=== PATIENT | female | born 1980 | race Caucasian/White ===

== ENCOUNTER 2017-10-22 10:05 | Emergency (ER) | payer SELFPAY | END 2017-10-22 11:50 | disposition home or self-care (01) | LOC: ERS 10:05 | DX: O99.713 Diseases of the skin and subcutaneous tissue complicating pregnancy, third trimester (principal); L03.115 Cellulitis of right lower limb; O10.913 Unspecified pre-existing hypertension complicating pregnancy, third trimester; O99.333 Smoking (tobacco) complicating pregnancy, third trimester; F17.210 Nicotine dependence, cigarettes, uncomplicated; Z3A.32 32 weeks gestation of pregnancy | CPT/HCPCS: 99283 ==

== ENCOUNTER 2017-10-22 13:06 | Day surgery (SDC) | payer OTHER ==
[2017-10-22 13:49] VITALS: BMI 51.9
[2017-10-22 14:27] LABS: #Basophils 0.1 thou/uL (0.0-0.2); #Eosinphils 0.1 thou/uL (0.0-0.7); #Lymphocytes 2.6 thou/uL (1.20-3.40); #Monocytes 0.9 thou/uL (0.11-0.59); #Neutrophils 12.1 thou/uL (1.40-6.50); %Basophils 0.4 % (0.0-1.0); %Eosinophils 0.5 % (0.0-10.0); %Lymphocytes 16.3 % (21.0-51.0); %Monocytes 5.6 % (0.0-10.0); %Neutrophils 77.2 % (42.0-75.0); Hemoglobin 12.4 g/dL (12.0-16.0); Mean Corpuscular HGB CONC 33.4 g/dL (32.0-36.0); Mean Corpuscular Hemoglobin 31.6 pg (27.0-31.0); Mean Corpuscular Volume 94.5 fl (81.0-99.0); Mean Platelet Volume 6.9 fL (7.4-10.4); Platelet Count 231 thou/uL (130-400); RBC Distribution Width 10.9 % (11.5-14.5); Red Blood Cell (RBC) Count 3.92 mill/uL (4.20-5.40); White Blood Cell (WBC) Count 15.6 thou/uL (4.8-10.8)
[2017-10-22 14:34] VITALS: BP 125/77; TEMP 98.7
[2017-10-22 14:45] LABS: ALT (SGPT) 10 U/L (8-55); AST (SGOT) 15 U/L (5-34); Albumin 3.2 g/dL (3.5-5.0); Alkaline Phosphatase 90 U/L (40-150); Anion Gap 15 mmol/L (10-20); BUN (Urea Nitrogen) 12 mg/dL (7.0-18.7); Bilirubin, Total 0.2 mg/dL (0.2-1.2); Calc. Creatinine Clearance 241 mL/min (70-130); Calcium 8.7 mg/dL (7.8-10.44); Carbon Dioxide 18 mmol/L (22-29); Chloride 107 mmol/L (98-107); Estimated GFR-MDRD Greater than 90; Globulin 2.8 g/dL (2.4-3.5); Glucose 91 mg/dL (70-105); Potassium 4.1 mmol/L (3.5-5.1); Sodium 136 mmol/L (136-145)
[2017-10-22 15:10] LABS: Bilirubin Negative (Negative); Blood, Urine Negative (Negative); Clarity CLEAR (Clear); Glucose, Urine (Dipstick) Negative (Negative); Leukocyte Negative (Negative); Nitrite Negative (Negative); Protein, Urine (Dipstick) Negative (Neg-Trace); Specific Gravity, Urine 1.017 (1.002-1.036); Urobilinogen 0.2 mg/dL (0.2-1.0)
[2017-10-22] MEDS ORDERED: Lactated Ringer's 1,000 ML IV SCH (15:45)
--- NOTE | 2017-10-23 01:00 | SS ---
OB TRIAGE NOTE DATE OF EVALUATION: 10/22/2017 ATTENDING PHYSICIAN: Nkechi Alejo M.D. EVALUATING PHYSICIAN: Tristin Jj M.D. CHIEF COMPLAINT: Elevated blood pressure in the office. HISTORY OF PRESENT ILLNESS: Ms. Hughes is a 37-year-old, white, G5, P1, AB2, with an estimated da te of confinement of 12/17/2017, now at 31 and 6/7 weeks, who presents after being evaluated in Dr. Dano mccain's office. She was seen this morning, at which time she had elevated blood pressure and also garcia d an abscess on her foot that Dr. Alejo opened up. Dr. Alejo called me and asked me to evaluate he r for the possibility of PIH. Apparently when she went to the ER, she was seen by the ER doctor cat tena for her wound, but did not come up here for evaluation. Dr. Alejo's office was notified and the p atient returned here to Labor and Delivery for evaluation. At the present time, she feels well, and she denies headache, visual changes, or right upper quadrant pain. PAST OBSTETRICAL HISTORY: Apparently, she has had 1 vaginal delivery and 1 for ruptured ut erus. She has also had 2 intervening spontaneous losses. PAST MEDICAL HISTORY: Unremarkable. CURRENT MEDICATIONS: vitamins. SURGICAL HISTORY: as above. ALLERGIES: Include LATEX, PENICILLIN, EPINEPHRINE. SOCIAL HISTORY: She denies tobacco, alcohol, or drug use. FAMILY HISTORY: Reported as unremarkable. PHYSICAL EXAMINATION: VITAL SIGNS: Blood pressure is well under observation here 120s to 130s over 70s-80s. Her blood pre ssure now is 118/63. GENERAL: She is well appearing and in no acute distress. ABDOMEN: Soft, nontender, and gravid. PELVIC: Pelvic examination is deferred. HEART RATE: heart tones are stable with good urbn-xr-repk variability and spontaneous ac celerations. She was having intermittent contractions, and she was bolused with a liter of IV fluid and now really has only irritability. LABORATORY DATA: CBC shows a white count of 15.6, hemoglobin of 12.4, hematocrit of 37.1, and a plat elet count of 231,000. Catheter UA shows a specific gravity of 1.017 with negative leukocytes, negat elida nitrites, negative protein, negative glucose, and negative bilirubin. Metabolic chemistry shows a creatinine of 0.62, BUN of 12, and a total bilirubin of 0.2. AST and ALT are 15 and 10 respectivel y. ASSESSMENT: 1. A 32-week intrauterine with history of uterine rupture. 2. No evidence of preeclampsia at the present time. 3. Status post I and D of her lower extremity. PLAN: At this time, she will be discharged home with precautions. On her evaluation by the holly gonzalez this morning, she was given a prescription for oral clindamycin and she has had this filled and will take this at home. She was given complete precautions and is told to return here for contracti ons, vaginal bleeding, ruptured membranes, or persistent headache. She understands the above and is discharged in good condition.
== END 2017-10-22 15:50 | disposition home or self-care (01) ==
LOC: L&D/OP 13:06
PROVIDERS: ATTEND Obstetrics & Gynecology
DX: O99.89 Other specified diseases and conditions complicating pregnancy, childbirth and the puerperium (principal); R03.0 Elevated blood-pressure reading, without diagnosis of hypertension; Z3A.31 31 weeks gestation of pregnancy; Z79.899 Other long term (current) drug therapy; Z88.0 Allergy status to penicillin; Z88.8 Allergy status to other drugs, medicaments and biological substances; Z91.040 Latex allergy status; Z98.891 History of uterine scar from previous surgery
CPT/HCPCS: 51701; 59025; 80053; 81003; 85025; 96360; 96361; 99283; A4353

== ENCOUNTER 2017-11-08 00:25 | Day surgery (SDC) | payer OTHER ==
[2017-11-08 00:47] VITALS: BMI 35.9
[2017-11-08] MEDS ORDERED: Lactated Ringer's 1,000 ML IV SCH (01:30)
[2017-11-08 01:35] LABS: #Eosinphils 0.1 thou/uL (0.0-0.7); #Lymphocytes 2.7 thou/uL (1.20-3.40); #Monocytes 0.9 thou/uL (0.11-0.59); %Basophils 0.2 % (0.0-1.0); %Eosinophils 0.5 % (0.0-10.0); %Lymphocytes 19.9 % (21.0-51.0); %Monocytes 6.4 % (0.0-10.0); Hemoglobin 12.3 g/dL (12.0-16.0); Mean Corpuscular HGB CONC 34.5 g/dL (32.0-36.0); Mean Corpuscular Hemoglobin 31.8 pg (27.0-31.0); Mean Corpuscular Volume 92.2 fl (81.0-99.0); Platelet Count 214 thou/uL (130-400); Red Blood Cell (RBC) Count 3.88 mill/uL (4.20-5.40); White Blood Cell (WBC) Count 13.7 thou/uL (4.8-10.8)
[2017-11-08 01:44] LABS: Bilirubin Negative (Negative); Blood, Urine Negative (Negative); Clarity CLEAR (Clear); Glucose, Urine (Dipstick) Negative (Negative); Leukocyte Negative (Negative); Nitrite Negative (Negative); Protein, Urine (Dipstick) Negative (Neg-Trace); Specific Gravity, Urine 1.023 (1.002-1.036)
[2017-11-08 01:56] LABS: ALT (SGPT) 11 U/L (8-55); AST (SGOT) 18 U/L (5-34); Alkaline Phosphatase 89 U/L (40-150); Anion Gap 12 mmol/L (10-20); BUN (Urea Nitrogen) 9 mg/dL (7.0-18.7); Bilirubin, Total 0.2 mg/dL (0.2-1.2); Calc. Creatinine Clearance 185 mL/min (70-130); Calcium 8.7 mg/dL (7.8-10.44); Carbon Dioxide 20 mmol/L (22-29); Chloride 107 mmol/L (98-107); Estimated GFR-MDRD Greater than 90; Globulin 3.4 g/dL (2.4-3.5); Glucose 98 mg/dL (70-105); Potassium 3.7 mmol/L (3.5-5.1); Protein, Total 6.4 g/dL (6.0-8.3); Sodium 135 mmol/L (136-145)
--- NOTE | 2017-11-08 04:04 | SS ---
DATE OF SERVICE: 11/08/2017 REGULAR PHYSICIAN: Nkechi Alejo MD EVALUATING PHYSICIAN: Tristin Jj MD CHIEF COMPLAINT: Pelvic pressure and pain at home. HISTORY OF PRESENT ILLNESS: Ms. Hughes is a 37-year-old , AB2 with an estimated pedro e of confinement of 12/17/2017, who arrives via EMS complaining of pelvic pain and pressure noted lat e this evening. She denies vaginal bleeding or rupture of membranes. She has been followed closely by Dr. Nkechi Alejo for a history of uterine rupture in 2011. She is scheduled for a at 37 weeks. PAST OBSTETRICAL HISTORY: Includes 5-week and 19-week loss as well as a vaginal delivery at term in 2008. She had a uterine rupture in 02/2012, requiring and uterine repair. PAST MEDICAL HISTORY: Unremarkable. PAST SURGICAL HISTORY: and repair as above. CURRENT MEDICATIONS: vitamins. ALLERGIES: No known allergies. SOCIAL HISTORY: Denies tobacco or alcohol use. REVIEW OF SYSTEMS: Denies nausea, vomiting, fever, chills, vaginal bleeding, or ruptured membranes. PHYSICAL EXAMINATION: VITAL SIGNS: Initial blood pressure is 150/90. Repeat blood pressures on her side show 138/72 and 1 39/75. Vital signs are stable. She is afebrile. ABDOMEN: Soft, obese, nontender, and gravid. On pelvic examination, the cervix appears to be closed and is high in the vault. No vaginal bleeding seen. heart rate tracing is reassuring with sp ontaneous accelerations. Initially irritability seen. An IV is placed and she is given a liter of f luid. Irritability is resolved and no significant contractions are seen. LABORATORY DATA: WBC 13.7, hemoglobin and hematocrit 12.3 and 35.7, platelet count 214,000. BUN and creatinine are 9 and 0.56 respectively. AST and ALT are 18 and 11 respectively. A cath urine shows a specific gravity of 1.023 with negative nitrites, negative leukocytes, and negative protein. ASSESSMENT: 1. A 34-week intrauterine with history of previous uterine rupture. 2. No evidence of labor. 3. No evidence of preeclampsia. PLAN: The patient will be discharged to home. She was given complete labor as well as preeclampsia precautions. She is told to return for headache, blurry vision, or abdominal pain and contractions. She voices understanding and is discharged home in good condition.
== END 2017-11-08 02:42 | disposition home or self-care (01) ==
LOC: L&D/OP 00:25
PROVIDERS: ATTEND Obstetrics & Gynecology
DX: O99.89 Other specified diseases and conditions complicating pregnancy, childbirth and the puerperium (principal); R10.2 Pelvic and perineal pain; Z3A.34 34 weeks gestation of pregnancy; Z79.899 Other long term (current) drug therapy; Z98.891 History of uterine scar from previous surgery; Z98.890 Other specified postprocedural states
CPT/HCPCS: 51701; 80053; 81003; 85025; 99284

== ENCOUNTER 2018-04-16 00:46 | Emergency (ER) | payer OTHER ==
[2018-04-16] MEDS ORDERED: Dicyclomine 20 MG TAB PO SCH (06:00)
[2018-04-16] MEDS ORDERED: Ondansetron ODT 8 MG TAB PO SCH (06:00)
[2018-04-16 12:41] LABS: Bilirubin Negative (Negative); Blood, Urine Negative (Negative); Clarity CLEAR (Clear); Glucose, Urine (Dipstick) Negative (Negative); Leukocyte Negative (Negative); Nitrite Negative (Negative); Protein, Urine (Dipstick) Negative (Neg-Trace); RBC/HPF None Seen HPF (0-3); Specific Gravity, Urine 1.025 (1.002-1.036); pH, Urine 6.5 (5.0-9.0)
[2018-04-16 12:42] LABS: Bacteria/HPF None Seen HPF (None Seen); Hyaline Casts/LPF NONE SEEN LPF (0-3 Hyaline); Squamous Epithelial 0-3 HPF (0-3); WBC/HPF 0-3 HPF (0-3)
[2018-04-16 12:43] LABS: Albumin 3.8 g/dL (3.5-5.0); Alkaline Phosphatase 65 U/L (40-150); Anion Gap 14 mmol/L (10-20); Bilirubin, Total 0.4 mg/dL (0.2-1.2); Calc. Creatinine Clearance 0 mL/min (70-130); Calcium 9.5 mg/dL (7.8-10.44); Carbon Dioxide 22 mmol/L (22-29); Chloride 105 mmol/L (98-107); Estimated GFR-MDRD 75; Globulin 3.5 g/dL (2.4-3.5); Glucose 110 mg/dL (70-105); Potassium 3.9 mmol/L (3.5-5.1); Protein, Total 7.3 g/dL (6.0-8.3); Sodium 137 mmol/L (136-145)
[2018-04-16 12:44] LABS: ALT (SGPT) 17 U/L (8-55); AST (SGOT) 16 U/L (5-34); BUN (Urea Nitrogen) 12 mg/dL (7.0-18.7)
[2018-04-16 13:03] LABS: Troponin I Less than 0.010 ng/mL (< 0.028)
--- NOTE | 2018-04-16 14:51 | ULT ---
PELVIC ULTRASOUND WITH ESTRADA SCALE AND DOPPLER COLOR FLOW IMAGING AND SPECTRAL ANALYSIS: Date: 04/16/18 INDICATION: History of nausea and vomiting, left lower abdominal pain, fall with pain. FINDINGS: Doppler evaluation does reveal flow to each ovary. There is a right ovarian cyst approximating 3.0 cm . There is a hypoechoic focus of the endometrial region, too small to definitively characterize. This could relate to a gestational sac and, if so, would correspond to an approximate 5 week/3 day gestat ion. A discrete pole is not visualized and cardiac activity is not elicited. There is no evidence of significant free pelvic fluid. IMPRESSION: 1. Small hypoechoic focus of the endometrial region which may relate to a gestational sac. Recommend correlation with beta HCG values, as well as imaging follow-up to confirm expected progression as th is finding is currently too small to further characterize. 2. Dominant cyst of the right ovary, approximately 3.0 cm. Six week pelvic ultrasound would be benef icial to confirm expected resolution. POS: [facility]
[2018-04-16 15:58] LABS: #Eosinphils 0.1 thou/uL (0.0-0.7); #Lymphocytes 3.2 thou/uL (1.20-3.40); #Monocytes 0.8 thou/uL (0.11-0.59); #Neutrophils 9.9 thou/uL (1.40-6.50); %Basophils 0.1 % (0.0-1.0); %Eosinophils 0.4 % (0.0-10.0); %Lymphocytes 22.7 % (21.0-51.0); %Monocytes 5.5 % (0.0-10.0); %Neutrophils 71.3 % (42.0-75.0); Hemoglobin 13.1 g/dL (12.0-16.0); Mean Corpuscular HGB CONC 31.1 g/dL (32.0-36.0); Mean Corpuscular Hemoglobin 28.2 pg (27.0-31.0); Mean Corpuscular Volume 90.6 fL (78.0-98.0); Mean Platelet Volume 7.8 fL (7.4-10.4); Platelet Count 301 thou/uL (130-400); Red Blood Cell (RBC) Count 4.64 mill/uL (4.20-5.40); White Blood Cell (WBC) Count 13.9 thou/uL (4.8-10.8)
[2018-04-16 16:53] LABS: HCG, Total Quant 1662.96 mIU/mL (See Ranges)
[2018-04-16 16:54] LABS: BHCG - Serum POSITIVE (NEGATIVE); Pregs Control Background? CLEAR/WHITE (CLR/WHITE); Pregs Control Bar Appear? YES (CONTROL BAR)
--- NOTE | 2018-04-24 12:31 | EKG ---
Test Reason : Blood Pressure : / mmHG Vent. Rate : 085 BPM Atrial Rate : 085 BPM P-R Int : 176 ms QRS Dur : 094 ms QT Int : 384 ms P-R-T Axes : 053 028 050 degrees QTc Int : 456 ms Normal sinus rhythm Normal ECG Confirmed by PIPO GONZALEZ D.O. ([id number]), editor magazine [employer]ITT ([id number]) on 04/24/2018 12:30:45 PM Referred By: Confirmed By:PIPO GONZALEZ D.O.
== END 2018-04-16 04:01 | disposition left against medical advice (07) ==
LOC: ERS 00:46
DX: O09.511 Supervision of elderly primigravida, first trimester (principal); O20.0 Threatened abortion; O34.81 Maternal care for other abnormalities of pelvic organs, first trimester; N83.201 Unspecified ovarian cyst, right side; O99.89 Other specified diseases and conditions complicating pregnancy, childbirth and the puerperium; R51 Headache; W19.XXXA Unspecified fall, initial encounter; Z3A.01 Less than 8 weeks gestation of pregnancy
CPT/HCPCS: 76856; 80053; 81001; 84484; 84702; 84703; 85025; 93005

== ENCOUNTER 2018-09-29 00:26 | Day surgery (SDC) | payer OTHER ==
[2018-09-29] MEDS ORDERED: Lactated Ringer's 1,000 ML IV SCH (01:15)
[2018-09-29 01:25] VITALS: BP 137/70; TEMP 97.9; BMI 57.4
[2018-09-29] MEDS ORDERED: Acetaminophen 500 MG TAB PO SCH (01:30)
[2018-09-29] MEDS ORDERED: Butorphanol Tartrate 1 MG/ML VIAL SLOW IVP PRN (01:31)
--- NOTE | 2018-09-29 01:41 | PDOC.LDHP ---
Labor and Delivery H&P Chief complaint: abdominal pain HPI: 38 y/o at 29w6d, patient of Dr. Alejo, presents with lower abdominal pain and low back pain for the last few hours. She reports the pain is "like a constant cramp," with pelvic pressure, and dysuria. Nothing makes it worse or better. She has not taken anything for the pain. Denies VB, LOF, discharge, or decreased FM. ROS neg for HEENT, CV, pulm, GI, , neuro, psych, skin, musculoskeletal, or constitutional symptoms other than mentioned above. OB History Details: 1. 41 week emergent LTCS for FHRA during induction with uterine rupture, placental abruption - demise 2. RLTCS at 37 weeks Current complications: none Past Medical History: Morbid obesity Current medications: pre- vitamins Previous surgical history: low tranverse CS (x2) Allergies/Adverse Reactions: Allergies Allergy/AdvReac Type Severity Reaction Status Date / Time epinephrine Allergy Severe Verified 09/29/18 01:26 Hives Latex, Natural Rubber Allergy Severe Verified 09/29/18 01:26 Hives penicillin G Allergy Severe Verified 09/29/18 01:26 Hives Social history: none - Physical Exam Vital signs reviewed and normal: yes General: NAD (appears uncomfortable) Lungs: nonlabored breathing Abdomen: gravid Extremeties: no edema FHT: category 1 (140s, mod variability, + accels, no decels) [place] contractions every: none - Vaginal Exam cm dilated: 0 Effacement: 0% Station: -3 - Assessment 38 y/o at 29w6d with abdominal pain, resolved with IV fluids, tylenol, and one dose of Stadol. status reassuring with reactive NST. - Plan -: Patient requesting to go home, feeling better now. D/c home with precautions. Advised to keep all appointments.
[2018-09-29 01:45] LABS: Bilirubin Negative (Negative); Blood, Urine Negative (Negative); Clarity CLOUDY (Clear); Glucose, Urine (Dipstick) 100 mg/dL (Negative); Leukocyte Negative (Negative); Nitrite Negative (Negative); Protein, Urine (Dipstick) Negative (Neg-Trace); Specific Gravity, Urine 1.026 (1.002-1.036)
[2018-09-29 01:46] LABS: Bacteria/HPF None Seen HPF (None Seen); Hyaline Casts/LPF 0-3 HYALINE CAST LPF (0-3 Hyaline); RBC/HPF 0-3 HPF (0-3); Squamous Epithelial 0-3 HPF (0-3); WBC/HPF 0-3 HPF (0-3)
[2018-09-29 02:06] LABS: FFN Internal QC Analyzer PASS (PASS); FFN Internal QC Cassette PASS (PASS); Fetal Fibronectin Negative (Negative)
== END 2018-09-29 07:30 | disposition home or self-care (01) ==
LOC: L&D/OP 00:26
PROVIDERS: ATTEND Obstetrics & Gynecology
DX: O99.89 Other specified diseases and conditions complicating pregnancy, childbirth and the puerperium (principal); R10.30 Lower abdominal pain, unspecified; O34.211 Maternal care for low transverse scar from previous cesarean delivery; Z3A.29 29 weeks gestation of pregnancy; Z91.040 Latex allergy status; Z88.0 Allergy status to penicillin; Z88.8 Allergy status to other drugs, medicaments and biological substances; Z79.899 Other long term (current) drug therapy
CPT/HCPCS: 51701; 81001; 82731; 96360; 96375; 99283; J0595

== ENCOUNTER 2018-10-28 14:06 | Emergency (ER) | payer OTHER | END 2018-10-28 15:43 | disposition home or self-care (01) | LOC: ERS 14:06 | DX: O99.89 Other specified diseases and conditions complicating pregnancy, childbirth and the puerperium (principal); R10.30 Lower abdominal pain, unspecified; Z3A.34 34 weeks gestation of pregnancy ==

== ENCOUNTER 2018-10-28 16:11 | Inpatient (IN) | payer OTHER ==
[2018-10-28 16:21] VITALS: BMI 57.8
[2018-10-28] MEDS ORDERED: Ondansetron PF 4 MG/2 ML Vial IVP PRN (19:06)
[2018-10-28 20:43] LABS: Hemoglobin 12.3 g/dL (12.0-16.0); Mean Corpuscular HGB CONC 34.2 g/dL (32.0-36.0); Mean Corpuscular Hemoglobin 31.5 pg (27.0-31.0); Mean Corpuscular Volume 92.3 fL (78.0-98.0); Mean Platelet Volume 7.2 fL (7.4-10.4); Platelet Count 212 thou/uL (130-400); RBC Distribution Width 11.7 % (11.5-14.5); Red Blood Cell (RBC) Count 3.91 mill/uL (4.20-5.40); White Blood Cell (WBC) Count 13.8 thou/uL (4.8-10.8)
[2018-10-28] MEDS ORDERED: Butorphanol Tartrate 1 MG/ML VIAL SLOW IVP PRN (22:26)
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
[2018-10-29] MEDS ORDERED: Acetaminophen/Codeine 30-300mg Tablet PO PRN (00:54)
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
[2018-10-29] MEDS: Acetaminophen 500 MG TAB PO PRN ×2 (07:37→16:11)
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
[2018-10-29] MEDS ORDERED: Labetalol HCl 100 MG/20 ML VIAL ONE (11:47)
--- NOTE | 2018-10-29 11:50 | PDOC.EVN ---
Event Note - Event Note Event Note: OBGYN Quality Assurance Inspector HTN note Time: 1150 L&D EGA 34 weeks Called for maternal BP 166/78 and 173/79. I just ordered labetolol 20mg IV now Ordered steroids as well now Per Dr Alejo, HX CHTN....but no meds. not on ASPIRIN..as she declined Baseline pressures 140s/80s in office. Just discussed with Dr Alejo Follow BPs Ordered CMP
[2018-10-29] MEDS ORDERED: Betamet Acet/Betamet Na Ph 30 MG/5 ML VIAL IM SCH (12:00)
--- NOTE | 2018-10-29 12:03 | PDOC.EVN ---
Event Note - Event Note Event Note: 1200 L&D Bedside APU1 I am here at bedside. Patient had first refused labetolol IV. She was concerned it was "too much medicine for the baby". I reviewed with her, with our RN in room, ACOG protocols for urgent HTN and reasons to lower: decreased CVA risk, decresaed abruption risk. She now agrees to meds. Past HX reviewed including uterine rupture. Past HX tobacco I also discussed: Steroids Possible early delivery if BPs remain severe SCDs
[2018-10-29 12:11] VITALS: TEMP 97.5
[2018-10-29] MEDS ORDERED: Labetalol HCl 100 MG/20 ML VIAL SLOW IVP SCH ×2 (12:15→12:45)
--- NOTE | 2018-10-29 12:32 | PDOC.EVN ---
Event Note - Event Note Event Note: Time: 1231 Repeat BP 177/80s 10 min after 20mg labetolol Per ACOG protocol, give 40mg SIVP now
[2018-10-29 13:14] LABS: Amphetamine Not Detected (NotDetected); Barbiturates Screen Not Detected (NotDetected); Benzodiazepine Screen Not Detected (NotDetected); Cocaine Metabolite Screen Not Detected (NotDetected); Medtox Control Line Valid? VALID (VALID); Medtox Reader # READER 4; Methadone Not Detected (NotDetected); Methamphetamine Not Detected (NotDetected); Opiate Screen Detected (NotDetected); Oxycodone Screen Not Detected (NotDetected); Phencyclidine (PCP) Not Detected (NotDetected); THC/Cannabinoid Screen Not Detected (NotDetected); Tricyclic Screen Not Detected (NotDetected)
[2018-10-29] MEDS: Betamet Acet/Betamet Na Ph 30 MG/5 ML VIAL IM SCH (13:18)
[2018-10-29 13:45] LABS: ALT (SGPT) 14 U/L (8-55); AST (SGOT) 13 U/L (5-34); Alkaline Phosphatase 64 U/L (40-150); Anion Gap 12 mmol/L (10-20); BUN (Urea Nitrogen) 6 mg/dL (7.0-18.7); Bilirubin, Total 0.2 mg/dL (0.2-1.2); Calc. Creatinine Clearance 266 mL/min (70-130); Calcium 8.7 mg/dL (7.8-10.44); Carbon Dioxide 22 mmol/L (22-29); Chloride 108 mmol/L (98-107); Estimated GFR-MDRD Greater than 90; Globulin 3.2 g/dL (2.4-3.5); Glucose 136 mg/dL (70-105); Potassium 3.6 mmol/L (3.5-5.1); Protein, Total 6.2 g/dL (6.0-8.3); Sodium 138 mmol/L (136-145)
--- NOTE | 2018-10-29 18:49 | PDOC.EVN ---
Event Note - Event Note Event Note: BP checks: BPs since 1300 have been well controlled and less than 140/90s
[2018-10-29 19:12] VITALS: BP 136/63
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
[2018-10-30] MEDS: Betamet Acet/Betamet Na Ph 30 MG/5 ML VIAL IM SCH (13:40)
== END 2018-10-30 15:00 | disposition home or self-care (01) | DRG 833 ==
LOC: L&D/OP 16:11 → L&D 20:37 → OBSVTOIN 10-29 12:07
PROVIDERS: ADMIT Obstetrics & Gynecology; ATTEND Obstetrics & Gynecology
DX: O9A.213 Injury, poisoning and certain other consequences of external causes complicating pregnancy, third trimester (principal); O99.213 Obesity complicating pregnancy, third trimester; E66.01 Morbid (severe) obesity due to excess calories; V89.2XXA Person injured in unspecified motor-vehicle accident, traffic, initial encounter; O10.013 Pre-existing essential hypertension complicating pregnancy, third trimester; Z3A.34 34 weeks gestation of pregnancy; Z88.0 Allergy status to penicillin; Z91.040 Latex allergy status; Z88.8 Allergy status to other drugs, medicaments and biological substances
CPT/HCPCS: 36415; 59025; 76815; 80053; 80306; 85027; 85384; 85460; 99283; 99285; J0595; J0702

== ENCOUNTER 2018-11-09 22:51 | Inpatient (IN) | payer OTHER ==
[2018-11-09 23:14] VITALS: BMI 57.8
[2018-11-09] MEDS ORDERED: Morphine 10 MG/ML VIAL IM SCH (23:45)
[2018-11-09] MEDS ORDERED: Morphine 4 MG/ML VIAL SLOW IVP SCH (23:45)
[2018-11-09] MEDS ORDERED: Lactated Ringer's 1,000 ML IV SCH (23:45)
[2018-11-09] MEDS ORDERED: Ondansetron PF 4 MG/2 ML Vial IVP SCH (23:45)
[2018-11-09] MEDS ORDERED: Butorphanol Tartrate 1 MG/ML VIAL SLOW IVP PRN (23:55)
[2018-11-09] MEDS ORDERED: Promethazine HCl 25 MG/ML VIAL IM PRN (23:55)
[2018-11-10 00:56] LABS: Hemoglobin 12.8 g/dL (12.0-16.0); Mean Corpuscular Hemoglobin 31.5 pg (27.0-31.0); Mean Corpuscular Volume 92.7 fL (78.0-98.0); Mean Platelet Volume 7.9 fL (7.4-10.4); Platelet Count 207 thou/uL (130-400); RBC Distribution Width 11.6 % (11.5-14.5); Red Blood Cell (RBC) Count 4.05 mill/uL (4.20-5.40); White Blood Cell (WBC) Count 16.2 thou/uL (4.8-10.8)
[2018-11-10 01:16] LABS: ALT (SGPT) 14 U/L (8-55); AST (SGOT) 22 U/L (5-34); Albumin 3.1 g/dL (3.5-5.0); Alkaline Phosphatase 72 U/L (40-150); Anion Gap 14 mmol/L (10-20); BUN (Urea Nitrogen) 8 mg/dL (7.0-18.7); Bilirubin, Total 0.3 mg/dL (0.2-1.2); Calc. Creatinine Clearance 284 mL/min (70-130); Carbon Dioxide 19 mmol/L (22-29); Chloride 106 mmol/L (98-107); Estimated GFR-MDRD Greater than 90; Globulin 3.6 g/dL (2.4-3.5); Glucose 82 mg/dL (70-105); Potassium 4.1 mmol/L (3.5-5.1); Protein, Total 6.7 g/dL (6.0-8.3); Sodium 135 mmol/L (136-145)
[2018-11-10] MEDS: Lactated Ringer's 1,000 ML IV SCH (01:21)
[2018-11-10 02:10] LABS: Bilirubin Negative (Negative); Blood, Urine Negative (Negative); Clarity CLEAR (Clear); Glucose, Urine (Dipstick) Negative (Negative); Leukocyte Negative (Negative); Nitrite Negative (Negative); Protein, Urine (Dipstick) Negative (Neg-Trace); Urobilinogen 0.2 mg/dL (0.2-1.0)
[2018-11-10 02:15] LABS: Urine Culture Reflex No No
[2018-11-10] MEDS ORDERED: Butorphanol Tartrate 1 MG/ML VIAL SLOW IVP SCH (04:00)
[2018-11-10] MEDS ORDERED: Butorphanol Tartrate 1 MG/ML VIAL ONE ×2 (04:00)
[2018-11-10] MEDS ORDERED: Ondansetron PF 4 MG/2 ML Vial IVP PRN ×2 (04:28→09:30)
[2018-11-10] MEDS ORDERED: Lactated Ringer's 1,000 ML IV SCH (04:30)
[2018-11-10 05:08] LABS: Hemoglobin 12.2 g/dL (12.0-16.0); Mean Corpuscular HGB CONC 31.5 g/dL (32.0-36.0); Mean Corpuscular Hemoglobin 29.4 pg (27.0-31.0); Mean Corpuscular Volume 93.3 fL (78.0-98.0); Mean Platelet Volume 7.5 fL (7.4-10.4); Platelet Count 210 thou/uL (130-400); RBC Distribution Width 11.7 % (11.5-14.5); Red Blood Cell (RBC) Count 4.14 mill/uL (4.20-5.40); White Blood Cell (WBC) Count 13.6 thou/uL (4.8-10.8)
[2018-11-10 05:49] LABS: Syphilis Antibody Nonreactive (Nonreactive); Syphilis Antibody Index 0.03 S/CO (<1.00 Non-Reactive)
[2018-11-10 06:52] LABS: HBSAg Index 0.43 S/CO (0-0.99); Hep B Surf Ag NonReactive S/CO (NonReactive)
--- NOTE | 2018-11-10 08:03 | ULT ---
LIMITED OB ULTRASOUND: History: Patient had a previous . Physician requested the uterine wall to be evaluated near the C-Sec tion scar. FINDINGS: Real-time imaging of the pelvis shows a viable intrauterine in cephalic presentation. heart rate is 131 beats/minute. The placenta is not imaged on this examination. Imaging over the are a of scar shows no obvious uterine wall abnormality although exam is very limited. Referring physicia n viewed this and was satisfied with the results and technologist terminated this study. IMPRESSION: Limited OB ultrasound. No abnormalities demonstrated as described above. POS: [facility]
[2018-11-10] MEDS ORDERED: Promethazine HCl 25 MG/ML VIAL IM PRN (09:30)
[2018-11-10] MEDS ORDERED: Acetaminophen 500 MG TAB PO PRN (09:30)
[2018-11-10] MEDS ORDERED: hydrALAZINE 20 MG/ML VIAL SLOW IVP PRN (09:33)
[2018-11-10 11:37] LABS: ALT (SGPT) 13 U/L (8-55); AST (SGOT) 15 U/L (5-34); Alkaline Phosphatase 73 U/L (40-150); Anion Gap 13 mmol/L (10-20); BUN (Urea Nitrogen) 6 mg/dL (7.0-18.7); Bilirubin, Total 0.5 mg/dL (0.2-1.2); Calc. Creatinine Clearance 279 mL/min (70-130); Calcium 8.8 mg/dL (7.8-10.44); Carbon Dioxide 21 mmol/L (22-29); Chloride 106 mmol/L (98-107); Estimated GFR-MDRD Greater than 90; Glucose 86 mg/dL (70-105); Potassium 3.9 mmol/L (3.5-5.1); Sodium 136 mmol/L (136-145)
--- NOTE | 2018-11-10 12:27 | HP ---
PRIMARY INFECTION CONTROL PRACTITIONER: Nkechi Alejo MD CHIEF COMPLAINT: Pelvic and abdominal pain. HISTORY OF PRESENT ILLNESS: The patient is a 38-year-old, G7, P2 female with an intrauterine at 35 weeks and 6 days, who is presenting today with onset of lower pelvic and abdominal pain. The patient reports that it is constant and severe. She reports a lot of pressure and is worried that she is having a uterine rupture. The patient does have a history of a spontaneous uterine rupture with labor in her second . Per her report, provoked with Pitocin use resulting in a demise. The patient denies any strenuous activity today, any other ordinary activity. She denies any falls, headache, chest pain, shortness of breath, nausea, vomiting, diarrhea, constipation, hip problems, knee problems, muscle weakness, bleeding or discharge, or urinary urgency. PAST MEDICAL HISTORY: Morbid obesity and history of uterine rupture at term after Pitocin use for induction of labor; chronic hypertension, off medication. PAST SURGICAL HISTORY: Two prior C-sections. SOCIAL HISTORY: Denies drug, alcohol, or tobacco use. ALLERGIES: EPINEPHRINE, LATEX, AND PENICILLIN. MEDICATIONS: None. OB LABS: Blood type is AB positive. Antibody screen negative. Hepatitis B surface antigen is nonreactive. RPR is nonreactive. REVIEW OF SYSTEMS: Per HPI. PHYSICAL EXAMINATION: VITAL SIGNS: Upon arrival, initial blood pressure is 173/77, heart rate of 89. Subsequent pressures have been 130s to 140s over 60s to 80s, heart rate was in the 80s, respiratory rate 18. She did overnight have another severe range of pressure of 186/87 in conjunction with crying and discussion about her fears of uterine rupture. GENERAL: The patient appears to be in distress and extremely anxious and has been difficult to calm and relax on initial exam. She otherwise does not appear toxic. LUNGS: Clear. HEART: Regular rate and rhythm. ABDOMEN: Soft. She does have tenderness in the lower abdomen, lower pelvis area. EXTREMITIES: Nontender. Her DTRs are normal. GENITOURINARY: Vulva is without masses, lesions, or erythema. Cervix is closed and very posterior with a lot of tenderness in the vaginal wall between her bladder and the vaginal wall and the baby's head. heart tracing shows a fetus with a baseline in the 130s with moderate long-term variability, positive 15 x 15 accelerations, and no decelerations. Tocometer on arrival did show contractions about every 4 to 5 minutes, which with IV fluids have spaced out this morning to every 20 to 30 minutes. Repeat exam this morning, the patient appears much more calm. LABORATORY DATA: Urine is negative for protein, negative for nitrites, leukocyte esterase. Sodium is 135, potassium 4.1, creatinine 0.56, AST 22, ALT of 14, calcium of 9.0. Fibrinogen is 526. Hemoglobin 12.8, hematocrit 37.6, platelets of 207,000. Repeat CBC 4 hours later shows hemoglobin of 12.2, platelets of 210,000. Ultrasound was performed with evaluation of the lower uterine segment and visual confirmation that everything is intact. No evidence of disruption of the anterior wall of the uterus at the level of the scar. ASSESSMENT AND PLAN: The patient is a 38-year-old female with an intrauterine at 35 weeks and 6 days, presenting with lower pelvic pain. There is no objective evidence that she has any rupture occurring at this time. The patient has extreme anxiety that this is going to happen again and has been very difficult to console with pain medication with repeat labs with ultrasound. I have discussed the case this morning with her primary OB, Dr. Alejo, who will be by at 8 to talk to her. Job ID: [id number]
[2018-11-11] MEDS ORDERED: Preparation H Ointment 28 GM TUBE TOP PRN (04:36)
[2018-11-11] MEDS ORDERED: Clindamycin/D5W 900 mg/50 ml Premix Bag ONE ×2 (07:22→07:34)
[2018-11-11] MEDS ORDERED: MORPHINE 5 MG/10 ML PF VIAL ONE (07:25)
[2018-11-11] MEDS ORDERED: Oxytocin 10 UNITS/ML VIAL ONE ×2 (07:26→08:15)
[2018-11-11] MEDS ORDERED: ePHEDrine/0.9% NaCl/PF SYRINGE 50 mg/10 ml ONE (07:53)
[2018-11-11] MEDS ORDERED: PHENYLEPHRINE-NS 100 MCG/ML 10 ML SYRINGE ONE ×2 (08:18→13:51)
[2018-11-11] MEDS ORDERED: Lanolin Ointment 7 GM TUBE TOP PRN (08:28)
[2018-11-11] MEDS ORDERED: Acetaminophen 325 MG TAB PO PRN (08:28)
[2018-11-11] MEDS ORDERED: Bisacodyl 10 MG SUPP PR PRN (08:28)
[2018-11-11] MEDS ORDERED: HYDROcodone/Acetaminophen 5/325 mg Tablet PO PRN ×3 (08:28→20:45)
[2018-11-11] MEDS ORDERED: diphenhydrAMINE 25 MG CAP PO PRN (08:28)
[2018-11-11] MEDS ORDERED: Adacel (T-DAP) 0.5 ML SYRINGE IM ONE (08:28)
[2018-11-11] MEDS ORDERED: Misoprostol 200 MCG TAB PR PRN (08:28)
[2018-11-11] MEDS ORDERED: NS / Oxytocin 40 units/1000ml 1,000 ML IV SCH (08:30)
[2018-11-11] MEDS ORDERED: Meperidine HCl/PF 25 MG/ML VIAL SLOW IVP PRN (08:41)
[2018-11-11] MEDS ORDERED: L&D-Morphine 4 MG/ML VIAL SLOW IVP PRN (08:41)
[2018-11-11] MEDS ORDERED: diphenhydrAMINE 50 MG/ML VIAL IVP PRN (08:41)
[2018-11-11] MEDS ORDERED: Naloxone HCl 0.4 mg/ml Vial IV PRN (08:41)
[2018-11-11] MEDS ORDERED: Ondansetron PF 4 MG/2 ML Vial IVP PRN (08:41)
[2018-11-11] MEDS ORDERED: Ondansetron HCl/PF 4 MG/2 ML Vial IVP PRN (08:41)
[2018-11-11] MEDS ORDERED: HYDROmorphone 2 MG/ML VIAL SLOW IVP PRN (08:41)
[2018-11-11] MEDS ORDERED: Naloxone HCl 0.4 mg/ml Vial IVP PRN ×2 (08:41)
[2018-11-11] MEDS ORDERED: Promethazine HCl 25 MG/ML VIAL IM PRN (08:41)
[2018-11-11] MEDS ORDERED: Promethazine HCl 25 MG SUPP PR PRN (08:41)
[2018-11-11] MEDS ORDERED: Eucerin (Mineral Oil/Petrolatum,White) 30 gm Jar TOP PRN (08:41)
[2018-11-11] MEDS ORDERED: Ketorolac Tromethamine 30 MG/ML VIAL IVP SCH (08:45)
[2018-11-11] MEDS ORDERED: Communication Order-Pharmacy FS SCH (08:45)
[2018-11-11] MEDS ORDERED: Ketorolac Tromethamine 30 MG/ML VIAL ONE (08:55)
[2018-11-11] MEDS: Ketorolac Tromethamine 30 MG/ML VIAL IVP PRN ×2 (09:00→18:44)
[2018-11-11] MEDS: Lactated Ringer's 1,000 ML IV SCH ×4 (10:07→14:27)
--- NOTE | 2018-11-11 11:36 | OP ---
DATE OF PROCEDURE: 11/11/2018 PREOPERATIVE DIAGNOSES: 1. A 38-year-old white female, G6, P3, A2 with previous uterine rupture in labor with . 2. Prior section x2. 3. Chronic hypertension. 4. Completed 36 weeks' gestation with persistent uterine irritability. POSTOPERATIVE DIAGNOSES: 1. A 38-year-old white female, G6, P3, A2 with previous uterine rupture in labor with . 2. Prior section x2. 3. Chronic hypertension. 4. Completed 36 weeks' gestation with persistent uterine irritability. PROCEDURE PERFORMED: Repeat low-transverse section without extensions. AUTOMATION QTP TESTER SURGEON: Genaro Cotto MD ANESTHESIA: Spinal block by Dr. Bernardo Mitchell. QUANTITATIVE BLOOD LOSS: 105 mL. ANTIBIOTICS: Clindamycin 900 mg on-call to OR due to severe penicillin allergy that was reported. FINDINGS: 1. Female infant, Apgars 8 and 8. weight 6 pounds and 2 ounces. Clear amniotic fluid noted with vertex presentation. 2. Clear urine present in Zurita catheter postprocedure. 3. The lower uterine segment was noted to be very thin, but no evidence of any muscle defect visualized. DISPOSITION: Recovery room, stable. DESCRIPTION OF PROCEDURE: The patient previously received informed consent in regard to surgery. She was taken back to the operating room, where she received a spinal block by Dr. Mitchell. She was placed in supine position, prepped and draped in usual sterile fashion with SCDs and Zurita catheter. At this time, a Pfannenstiel incision was made through the previous scar site. It was taken down to the fascia. The fascia was nicked in midline. The fascial incision was extended bilaterally using curved Jay scissors. The rectus fascia was then dissected sharply and bluntly off the rectus muscle bellies. Some adhesions were noted and these were taken down sharply and with Bovie cautery. Balbir O retractor was then placed. A 2-cm hysterotomy incision was made above the vesicouterine peritoneal reflection and noted a thin lower uterine segment. This was extended via finger fractionation. The amniotic bag was ruptured with clear fluid noted and the baby was delivered in the vertex presentation. The mouth and nares of the were bulb suctioned on the abdomen. The cord was doubly clamped and cut and the baby was handed to the tarper, Dr. Burdick, who was in attendance. The usual cord blood was obtained. Placenta was manually extracted. Uterus was externalized, then curetted of any remaining placental fragments with a dry laparotomy sponge. Hysterotomy incision was then closed with #1 Monocryl in running locking fashion with good hemostasis being confirmed. The uterus had been placed back in the abdomen. The pelvis was irrigated and suctioned. Again, hemostasis was confirmed. The Balbir O retractor was removed. The rectus muscle bellies were inspected and noted to be hemostatic prior to fascial closure. The fascia was closed with 0 PDS suture x2 in a running continuous fashion. Subcutaneous tissue was irrigated, noted to be hemostatic and was approximated with 2-0 plain gut in a running fashion. The skin was stapled. The surgery was terminated. There were no anesthetic or surgical complications. Job ID: [id number]
[2018-11-11] MEDS: Ferrous Sulfate 325 MG TAB PO SCH ×2 (13:44→22:56)
[2018-11-11] MEDS: Docusate Calcium (SURFAK) 240 MG CAP PO SCH ×2 (13:44→21:44)
[2018-11-11] MEDS: Prenatal Vitamin 1 TAB PO SCH (13:44)
[2018-11-11] MEDS ORDERED: ePHEDrine 50 MG/ML VIAL ONE (13:51)
[2018-11-11] MEDS ORDERED: Ibuprofen 800 MG TAB PO SCH (14:00)
[2018-11-11] MEDS: Simethicone Chewable 80 MG TAB PO PRN (21:45)
[2018-11-12] MEDS: Lactated Ringer's 1,000 ML IV SCH ×3 (01:13→18:43)
[2018-11-12] MEDS: HYDROcodone/Acetaminophen 5/325 mg Tablet PO PRN ×3 (02:18→13:34)
[2018-11-12] MEDS: Ibuprofen 800 MG TAB PO SCH ×3 (05:14→21:27)
[2018-11-12 07:12] LABS: Hemoglobin 12.2 g/dL (12.0-16.0); Mean Corpuscular HGB CONC 33.4 g/dL (32.0-36.0); Mean Corpuscular Hemoglobin 31.1 pg (27.0-31.0); Mean Corpuscular Volume 93.1 fL (78.0-98.0); Mean Platelet Volume 7.5 fL (7.4-10.4); Platelet Count 197 thou/uL (130-400); RBC Distribution Width 11.9 % (11.5-14.5); Red Blood Cell (RBC) Count 3.92 mill/uL (4.20-5.40); White Blood Cell (WBC) Count 12.4 thou/uL (4.8-10.8)
--- NOTE | 2018-11-12 08:02 | PDOC.PP ---
Post Progress Note Post Day #: 1 Subjective: Good pain control. No nausea. Tolerating diet. Baby doing well. PO intake tolerated: yes Flatus: yes Ambulation: yes Vital Signs (12 hours) Temp Pulse Resp BP Pulse Ox 11/12/18 05:10 98.3 F 100 18 138/71 11/12/18 02:00 98.8 F 101 H 20 141/73 H 11/11/18 20:00 98.4 F 102 H 20 136/72 95 Weight Weight 296 lb - Physical Examination Abdominal: + bowel sounds, lochia, no distention, appropriately TTP Extremities: negative homans (B) Result Diagrams: 11/12/18 06:47 11/10/18 10:49 Additional Labs: Post Labs Blood Type A POSITIVE 11/10/18 04:49 Hep Bs Antigen NonReactive S/CO (NonReactive) 11/10/18 04:49 - Assessment/Plan Post op day 1 from repeat c/s #3..H/o uterine rupture while in labor with .H/o chronic mild hypertension. Doing well. Routine care. Possible discharge 11/13 if baby continues to progress well. [place] out in office post op day 7.
--- NOTE | 2018-11-12 08:05 | PDOC.OPDEL ---
OB Operative/Delivery Note Delivery Dr/Surgeon: Sapna Assist: Yadiel Pre-Delivery Diagnosis: scheduled section Procedure/Post Delivery Dx: repeat low transverse CS Weeks gestation: 36 Anesthesia: spinal - Findings A Sex: female Weight: 6 lb 2 oz - 1 min: 8 - 5 min: 8 - Additional Findings/Plan Placenta delivered: manual removal Estimated blood loss: 105ml QBL
[2018-11-12] MEDS: Docusate Calcium (SURFAK) 240 MG CAP PO SCH ×2 (08:20→21:27)
[2018-11-12] MEDS: Prenatal Vitamin 1 TAB PO SCH (08:20)
[2018-11-12] MEDS: Ferrous Sulfate 325 MG TAB PO SCH ×2 (08:23→23:14)
[2018-11-12] MEDS ORDERED: Ibuprofen 800 MG TAB PO SCH (14:00)
[2018-11-12] MEDS: Simethicone Chewable 80 MG TAB PO PRN (21:28)
[2018-11-13] MEDS: Lactated Ringer's 1,000 ML IV SCH ×2 (01:09→05:52)
[2018-11-13] MEDS: Ibuprofen 800 MG TAB PO SCH (05:08)
[2018-11-13] MEDS: HYDROcodone/Acetaminophen 5/325 mg Tablet PO PRN ×2 (08:09→12:08)
[2018-11-13] MEDS: Prenatal Vitamin 1 TAB PO SCH (08:10)
[2018-11-13] MEDS: Docusate Calcium (SURFAK) 240 MG CAP PO SCH (08:10)
[2018-11-13] MEDS: Ferrous Sulfate 325 MG TAB PO SCH (08:11)
[2018-11-13 09:23] VITALS: BP 142/87; TEMP 99
--- NOTE | 2018-11-14 04:08 | DIS ---
DATE OF ADMISSION: 11/10/2018 DATE OF DISCHARGE: 11/13/2018 ADMITTING DIAGNOSES: 1. Intrauterine at 36 weeks. 2. Pelvic pain. 3. History of spontaneous uterine rupture at term. 4. Anxiety. DISCHARGE DIAGNOSES: 1. Intrauterine at 36 weeks. 2. Pelvic pain. 3. History of spontaneous uterine rupture at term. 4. Anxiety. 5. Status post repeat section. CONSULTATIONS: None. HOSPITAL COURSE: The patient is a 38-year-old female with an intrauterine at 35 weeks and 6 days on day of admission, who presented with onset of lower pelvic abdominal pain that patient reported severe with high anxiety and concern that she is experiencing a uterine rupture again. The patient reported at that time her history of spontaneous uterine rupture with induction of labor with her 2nd resulting in a demise. Her evaluation at that time did not prove to provide any evidence that she was having a uterine rupture. However, given her past history, high anxiety level and significant pain, her primary OB did proceed with a repeat at 36 weeks. For complete details, please refer to her operative note. The patient's course has been uncomplicated. Today is postop day #2. The patient reports that she is tolerating p.o., having good pain control. In fact, reports her pain is much better since before the and decreased lochia. The patient is ambulating and has good pain control. PHYSICAL EXAMINATION: VITAL SIGNS: This morning blood pressure is 142/87, temperature 99, pulse of 89, respiratory rate of 20, saturating 96% on room air. GENERAL: She appears to be in no acute distress. Fundus is unable to be examined due to habitus as the patient is morbidly obese. Her incision is clean and intact with justina. The patient is being discharged to home. She has instructions to follow up with her primary OB, Dr. Alejo, in the next 3-4 days for staple removal. She has also been given instructions to keep the area clean and dry with the aid of pat drying and blow drying. She has been given instructions to refrain from driving for the next 2 weeks and to limit her lifting to 15 pounds for the next 4 to 6 weeks. The patient will be discharged to home with ibuprofen and tramadol for pain control. Again, she is to follow up in the next 3-4 days for staple removal. Job ID: [id number]
== END 2018-11-13 12:40 | disposition home or self-care (01) | DRG 787 ==
LOC: L&D/OP 22:51 → L&D 11-10 11:53 → 3SW 11-11 12:53
PROVIDERS: ADMIT Obstetrics & Gynecology; ATTEND Obstetrics & Gynecology
PROC: 10D00Z1 Extraction of Products of Conception, Low, Open Approach (ICD-10-PCS; principal; 2018-11-11)
DX: O60.14X0 Preterm labor third trimester with preterm delivery third trimester, not applicable or unspecified (principal); O10.02 Pre-existing essential hypertension complicating childbirth; Z3A.36 36 weeks gestation of pregnancy; Z37.0 Single live birth; O34.219 Maternal care for unspecified type scar from previous cesarean delivery; O99.214 Obesity complicating childbirth; E66.01 Morbid (severe) obesity due to excess calories; O99.344 Other mental disorders complicating childbirth; F41.9 Anxiety disorder, unspecified; Z87.59 Personal history of other complications of pregnancy, childbirth and the puerperium; Z88.0 Allergy status to penicillin; Z88.8 Allergy status to other drugs, medicaments and biological substances; Z91.040 Latex allergy status
CPT/HCPCS: 36415; 51702; 76815; 80053; 81003; 85027; 85384; 86780; 86850; 86900; 86901; 87340; 99285; J0595; J1885; J2270; J2590; J3490

== ENCOUNTER 2019-02-04 07:08 | Emergency (ER) | payer OTHER, SELFPAY ==
[2019-02-04] MEDS ORDERED: Fentanyl 100 MCG/2 ML VIAL ONE (07:37)
[2019-02-04 07:58] LABS: #Basophils 0.1 thou/uL (0.0-0.2); #Eosinphils 0.1 thou/uL (0.0-0.7); #Lymphocytes 3.3 thou/uL (1.20-3.40); #Monocytes 0.7 thou/uL (0.11-0.59); #Neutrophils 6.1 thou/uL (1.40-6.50); %Basophils 0.9 % (0.0-1.0); %Eosinophils 1.2 % (0.0-10.0); %Lymphocytes 31.7 % (21.0-51.0); %Monocytes 6.7 % (0.0-10.0); %Neutrophils 59.6 % (42.0-75.0); Hemoglobin 14.6 g/dL (12.0-16.0); Mean Corpuscular HGB CONC 33.1 g/dL (32.0-36.0); Mean Corpuscular Hemoglobin 30.1 pg (27.0-31.0); Mean Platelet Volume 7.9 fL (7.4-10.4); Platelet Count 247 thou/uL (130-400); RBC Distribution Width 12.5 % (11.5-14.5); Red Blood Cell (RBC) Count 4.85 mill/uL (4.20-5.40); White Blood Cell (WBC) Count 10.3 thou/uL (4.8-10.8)
[2019-02-04 08:02] LABS: BHCG - Serum Negative (NEGATIVE); Pregs Control Background? CLEAR/WHITE (CLR/WHITE); Pregs Control Bar Appear? YES (CONTROL BAR)
[2019-02-04 08:16] LABS: ALT (SGPT) 22 U/L (8-55); AST (SGOT) 18 U/L (5-34); Albumin 3.8 g/dL (3.5-5.0); Alkaline Phosphatase 74 U/L (40-150); Anion Gap 13 mmol/L (10-20); BUN (Urea Nitrogen) 18 mg/dL (7.0-18.7); Bilirubin, Total 0.4 mg/dL (0.2-1.2); Calc. Creatinine Clearance 0 mL/min (70-130); Calcium 9.8 mg/dL (7.8-10.44); Carbon Dioxide 25 mmol/L (22-29); Chloride 104 mmol/L (98-107); Estimated GFR-MDRD Greater than 90; Globulin 3.6 g/dL (2.4-3.5); Glucose 96 mg/dL (70-105); Lipase 12 U/L (8-78); Potassium 3.8 mmol/L (3.5-5.1); Protein, Total 7.4 g/dL (6.0-8.3); Sodium 138 mmol/L (136-145)
[2019-02-04 08:48] LABS: Bilirubin Negative (Negative); Blood, Urine 1+ (Negative); Clarity Clear (Clear); Glucose, Urine (Dipstick) Normal (Negative); Leukocyte Negative Leu/uL (Negative); Nitrite Negative (Negative); Protein, Urine (Dipstick) Negative (Neg-Trace); RBC/HPF 0-3 HPF (0-3); Urobilinogen Normal mg/dL (Less than 2)
[2019-02-04 08:49] LABS: Bacteria/HPF 1+ HPF (None Seen)
--- NOTE | 2019-02-04 08:52 | ULT ---
ULTRASOUND ABDOMEN LIMITED: (RIGHT UPPER QUADRANT) HISTORY: 38-year-old female with right upper quadrant abdominal pain. FINDINGS: The gallbladder has normal wall thickness and has no evidence of gallstones or sludge. There are a f ew punctuate hyperechoic foci in the gallbladder wall, on the order of 2 mm each. The hepatic echoge nicity is normal. The right kidney has normal echogenicity and has no hydronephrosis. The pancreas is visualized, although ultrasound is relatively insensitive for pancreatic pathology compared to CT and MRI. There is no biliary dilation. The common duct caliber is 4 mm. IMPRESSION: 1. Incidental finding of either a few tiny gallbladder polyps or a few tiny punctate gallbladder wall calcifications, either of which should be of little clinical significance. 2. Otherwise normal. jn POS: CET
--- NOTE | 2019-02-04 10:21 | CT ---
CT ABDOMEN AND PELVIS WITH CONTRAST: Date: 02/04/19 COMPARISON: None. HISTORY: Epigastric abdominal pain when waking up this morning. TECHNIQUE: Multiple contiguous axial images were obtained in a CT of the abdomen and pelvis with contrast. Coron al reformats were performed. FINDINGS: The liver, gallbladder, kidneys, adrenal glands, spleen, and pancreas are unremarkable. No free air, free fluid, or stranding changes are seen in the abdomen or pelvis. An IUD is seen within the uterus. The large and small bowel are unremarkable. The appendix is normal. No abdominal or pelvic lymphadenopathy seen. There is a 2.3 cm fat-containing umbilical hernia. The osseous structures and visualized inferior tho rax are unremarkable. IMPRESSION: 1. No evidence of acute intra-abdominal/pelvic abnormality. 2. Fat-containing umbilical hernia. 3. IUD located in the uterus. POS: TPC
[2019-02-04] MEDS ORDERED: Mag-Al 1200 mg/1200 mg/30 ML UDCUP ONE (11:27)
[2019-02-04] MEDS ORDERED: Lidocaine Viscous Sol 2% 15 ml UD Cup ONE (11:27)
== END 2019-02-04 11:40 | disposition home or self-care (01) ==
LOC: ERS 07:08
DX: R10.13 Epigastric pain (principal); I10 Essential (primary) hypertension; G43.909 Migraine, unspecified, not intractable, without status migrainosus
CPT/HCPCS: 74177; 76705; 80053; 81003; 81015; 83690; 84703; 85025; 96374; J3010

== ENCOUNTER 2019-08-27 15:24 | Emergency (ER) | payer OTHER, SELFPAY ==
[2019-08-27] MEDS ORDERED: Ketorolac Tromethamine 30 MG/ML VIAL ONE (16:26)
--- NOTE | 2019-08-27 16:53 | RAD ---
Exam: Left ankle 3 views: HISTORY: Injury with pain COMPARISON: None FINDINGS: Marked generalized soft tissue fullness of the lower leg and ankle No evidence for fracture, dislocation, or other significant acute osseous abnormality. IMPRESSION: No significant acute process.
== END 2019-08-27 17:18 | disposition home or self-care (01) ==
LOC: ERS 15:24
DX: S93.402A Sprain of unspecified ligament of left ankle, initial encounter (principal); F17.210 Nicotine dependence, cigarettes, uncomplicated; W22.8XXA Striking against or struck by other objects, initial encounter
CPT/HCPCS: 96372; J1885

== ENCOUNTER 2020-11-26 21:23 | Emergency (ER) | payer SELFPAY ==
[~2020-11-26 21:23] MED LIST: Iopamidol-370 76% 500 ML 1 ML ONE
[2020-11-26 22:19] LABS: #Basophils 0.1 thou/uL (0.0-0.2); #Eosinphils 0.1 thou/uL (0.0-0.7); #Lymphocytes 3.4 thou/uL (1.20-3.40); #Monocytes 0.8 thou/uL (0.11-0.59); #Neutrophils 8.9 thou/uL (1.40-6.50); %Basophils 0.4 % (0.0-1.0); %Lymphocytes 25.7 % (21.0-51.0); %Monocytes 5.9 % (0.0-10.0); Hemoglobin 15.2 g/dL (12.0-16.0); Mean Corpuscular Hemoglobin 32.2 pg (27.0-31.0); Mean Corpuscular Volume 94.7 fL (78.0-98.0); Mean Platelet Volume 7.9 fL (7.4-10.4); Platelet Count 254 thou/uL (130-400); RBC Distribution Width 11.7 % (11.5-14.5); Red Blood Cell (RBC) Count 4.72 mill/uL (4.20-5.40); White Blood Cell (WBC) Count 13.3 thou/uL (4.8-10.8)
[2020-11-26 22:28] LABS: ALT (SGPT) 18 U/L (8-55); AST (SGOT) 16 U/L (5-34); Albumin 3.8 g/dL (3.5-5.0); Alkaline Phosphatase 80 U/L (40-110); Anion Gap 13 mmol/L (10-20); BUN (Urea Nitrogen) 16 mg/dL (7.0-18.7); Bilirubin, Total 0.3 mg/dL (0.2-1.2); Calc. Creatinine Clearance 0 mL/min (70-130); Calcium 9.5 mg/dL (7.8-10.44); Carbon Dioxide 28 mmol/L (22-29); Chloride 103 mmol/L (98-107); Globulin 3.7 g/dL (2.4-3.5); Glucose 104 mg/dL (70-105); Protein, Total 7.5 g/dL (6.0-8.3); Sodium 140 mmol/L (136-145)
[2020-11-26] MEDS ORDERED: Ondansetron PF 4 MG/2 ML Vial ONE (22:43)
[2020-11-26] MEDS ORDERED: Morphine 4 MG/ML VIAL ONE (22:43)
[2020-11-26 22:49] LABS: BHCG - Serum Negative (NEGATIVE); Pregs Control Bar Appear? YES (CONTROL BAR)
[2020-11-26 22:50] LABS: Pregs Control Background? CLEAR/WHITE (CLR/WHITE)
[2020-11-26] MEDS ORDERED: HYDROcodone/Acetaminophen 10/325 mg Tablet ONE (23:59)
== END 2020-11-27 00:46 | disposition home or self-care (01) ==
LOC: ERS 21:23
DX: K42.9 Umbilical hernia without obstruction or gangrene (principal); I10 Essential (primary) hypertension; F17.210 Nicotine dependence, cigarettes, uncomplicated
CPT/HCPCS: 74177; 80053; 84703; 85025; 96374; 96375; J2270; J2405; Q9967

== ENCOUNTER 2020-12-07 12:59 | Outpatient (CLI) | payer SELFPAY ==
[2020-12-07 14:55] LABS: #Eosinphils 0.1 10x3/uL (0.0-0.5); #Monocytes 0.6 10x3/uL (0.0-1.1); #Neutrophils 9.2 10x3/uL (1.5-8.4); %Basophils 0.3 % (0.0-2.0); %Eosinophils 0.6 % (0.0-6.0); %Lymphocytes 21.7 % (18.0-47.0); %Monocytes 4.4 % (0.0-10.0); %Neutrophils 72.6 % (40.0-75.0); Hemoglobin 14.3 g/dL (12.0-15.5); Mean Corpuscular HGB CONC 32.3 g/dL (32.0-36.0); Mean Corpuscular Hemoglobin 30.4 pg (27.0-33.0); Mean Corpuscular Volume 94.1 fl (81.6-98.3); Mean Platelet Volume 11.1 fl (7.4-10.4); Platelet Count 279 10x3/uL (150-450); RBC Distribution Width 12.9 % (11.5-14.5); Red Blood Cell (RBC) Count 4.71 10x6/uL (3.90-5.03); White Blood Cell (WBC) Count 12.6 10x3/uL (3.5-10.5)
[2020-12-07 15:21] LABS: Anion Gap 14 mmol/L (10-20); BUN (Urea Nitrogen) 12 mg/dL (7.0-18.7); Calc. Creatinine Clearance 0 mL/min (70-130); Calcium 9.3 mg/dL (7.8-10.44); Carbon Dioxide 25 mmol/L (22-29); Chloride 105 mmol/L (98-107); Glucose 132 mg/dL (70-105); Potassium 4.2 mmol/L (3.5-5.1); Sodium 140 mmol/L (136-145)
[2020-12-07 15:50] LABS: BHCG - Serum Negative (NEGATIVE); Pregs Control Background? CLEAR/WHITE (CLR/WHITE); Pregs Control Bar Appear? YES (CONTROL BAR)
[2020-12-07 20:46] LABS: SARS-CoV-2 PCR by NAA Not Detected (NotDetected)
== END 2020-12-07 13:00 | disposition home or self-care (01) ==
LOC: LABBT 12:59
PROVIDERS: ATTEND Surgery
DX: Z01.812 Encounter for preprocedural laboratory examination (principal); Z20.822 Contact with and (suspected) exposure to COVID-19
CPT/HCPCS: 80048; 84703; 85025; U0003; U0005

== ENCOUNTER 2020-12-11 09:47 | Day surgery (SDC) | payer OTHER ==
[2020-12-10 13:44] VITALS: BMI 58.0
[2020-12-11] MEDS ORDERED: Levofloxacin 500 mg/D5W 100 ml Premix Bag ONE (13:05)
[2020-12-11] MEDS ORDERED: Lidocaine 1% w/Epinephrine 1:100K 20 ML VIAL ONE (13:10)
[2020-12-11] MEDS ORDERED: Bupivacaine 0.25% HCL 30 ML VIAL ONE (13:10)
[2020-12-11] MEDS ORDERED: SUGAMMADEX SODIUM 500 MG/5 ML VIAL ONE (13:11)
[2020-12-11] MEDS ORDERED: Fentanyl 250 MCG/5 ML VIAL ONE (13:11)
[2020-12-11] MEDS ORDERED: Labetalol HCl 100 MG/20 ML VIAL ONE (13:30)
[2020-12-11] MEDS ORDERED: Glycopyrrolate 0.2 MG/ML 5 ML SYRINGE ONE (13:30)
[2020-12-11] MEDS ORDERED: Rocuronium Bromide 10 MG/ML (10ML VIAL) ONE (13:30)
[2020-12-11] MEDS ORDERED: Ondansetron PF 4 MG/2 ML Vial ONE (13:30)
[2020-12-11] MEDS ORDERED: Dexamethasone 20 MG/5 ML VIAL ONE (13:30)
[2020-12-11] MEDS ORDERED: Ketorolac Tromethamine 30 MG/ML VIAL ONE (13:30)
[2020-12-11] MEDS ORDERED: PROPOFOL 200 MG/20 ML VIAL ONE (13:30)
[2020-12-11] MEDS ORDERED: Lidocaine 1% PF 5 ML VIAL ONE (13:30)
[2020-12-11] MEDS ORDERED: HYDROcodone/Acetaminophen 5/325 mg Tablet ONE (16:30)
== END 2020-12-11 18:02 | disposition home or self-care (01) ==
LOC: SDC 09:47
PROVIDERS: ATTEND Surgery
PROC: 0WUF4JZ Supplement Abdominal Wall with Synthetic Substitute, Percutaneous Endoscopic Approach (ICD-10-PCS; principal; 2020-12-11)
DX: K43.6 Other and unspecified ventral hernia with obstruction, without gangrene (principal); F17.200 Nicotine dependence, unspecified, uncomplicated; Z88.0 Allergy status to penicillin; Z91.040 Latex allergy status; Z91.048 Other nonmedicinal substance allergy status; Z88.8 Allergy status to other drugs, medicaments and biological substances
CPT/HCPCS: C1781; J1100; J1885; J1956; J2405; J2704; J3010; S0020

== ENCOUNTER 2021-10-01 21:18 | Inpatient (IN) | payer OTHER, SELFPAY ==
[2021-10-01] MEDS ORDERED: Nitroglycerin 0.4 MG TAB 1 EACH ONE ×3 (22:17→22:47)
[2021-10-01] MEDS ORDERED: Aspirin Chewable 81 MG TAB ONE (22:17)
[2021-10-01 22:43] LABS: #Eosinphils 0.1 thou/uL (0.0-0.7); #Lymphocytes 3.3 thou/uL (1.20-3.40); #Monocytes 0.8 thou/uL (0.11-0.59); #Neutrophils 8.5 thou/uL (1.40-6.50); %Basophils 0.4 % (0.0-1.0); %Eosinophils 0.9 % (0.0-10.0); %Neutrophils 66.7 % (42.0-75.0); Hemoglobin 15.1 g/dL (12.0-16.0); Mean Corpuscular HGB CONC 33.7 g/dL (32.0-36.0); Mean Corpuscular Hemoglobin 31.8 pg (27.0-31.0); Mean Corpuscular Volume 94.4 fL (78.0-98.0); Mean Platelet Volume 8.1 fL (7.4-10.4); Platelet Count 213 thou/uL (130-400); RBC Distribution Width 12.6 % (11.5-14.5); Red Blood Cell (RBC) Count 4.73 mill/uL (4.20-5.40); White Blood Cell (WBC) Count 12.8 thou/uL (4.8-10.8)
[2021-10-01] MEDS ORDERED: Nitroglycerin 2% Ointment 1 INCH/1 GM Packet ONE (22:57)
[2021-10-01] MEDS ORDERED: Mag-Al 1200 mg/1200 mg/30 ML UDCUP ONE (22:57)
[2021-10-01] MEDS ORDERED: Lidocaine Viscous Sol 2% 15 ml UD Cup ONE (22:57)
[2021-10-01 22:59] LABS: ALT (SGPT) 20 U/L (8-55); AST (SGOT) 17 U/L (5-34); Alkaline Phosphatase 88 U/L (40-110); Anion Gap 15 mmol/L (10-20); BUN (Urea Nitrogen) 17 mg/dL (7.0-18.7); Bilirubin, Total 0.4 mg/dL (0.2-1.2); CK (CPK) 87 U/L (29-168); Calc. Creatinine Clearance 0 mL/min (70-130); Carbon Dioxide 26 mmol/L (22-29); Chloride 102 mmol/L (98-107); Globulin 3.1 g/dL (2.4-3.5); Glucose 104 mg/dL (70-105); Potassium 3.8 mmol/L (3.5-5.1); Protein, Total 7.1 g/dL (6.0-8.3); Sodium 139 mmol/L (136-145)
[2021-10-01] MEDS ORDERED: Morphine 4 MG/ML VIAL ONE ×2 (23:21→23:28)
[2021-10-01] MEDS ORDERED: Ondansetron PF 4 MG/2 ML Vial ONE (23:21)
[2021-10-02 01:38] LABS: Troponin I 0.015 ng/mL (< 0.028)
[2021-10-02] MEDS ORDERED: Ondansetron ODT 4 MG TAB SL PRN (01:45)
[2021-10-02] MEDS ORDERED: Ondansetron PF 4 MG/2 ML Vial IVP PRN (01:45)
[2021-10-02 01:54] VITALS: BMI 62.9
[2021-10-02 05:15] LABS: Troponin I 0.017 ng/mL (< 0.028)
[2021-10-02] MEDS ORDERED: Morphine 4 MG/ML VIAL SLOW IVP SCH (06:00)
[2021-10-02] MEDS ORDERED: Nitroglycerin 0.4 MG TAB (25 Tab Bottle) SL PRN (07:39)
[2021-10-02] MEDS ORDERED: Acetaminophen 650 MG Suppository PR PRN (07:39)
[2021-10-02] MEDS ORDERED: Acetaminophen 325 MG TAB PO PRN (07:39)
[2021-10-02] MEDS: Furosemide 20 MG TAB PO SCH (08:42)
[2021-10-02] MEDS: Aspirin Chewable 81 MG TAB PO SCH (08:42)
[2021-10-02] MEDS: Spironolactone 25 MG TAB PO SCH (08:42)
[2021-10-02] MEDS ORDERED: Enoxaparin Sodium 40 MG/0.4 ML SYRINGE SC SCH (09:00)
[2021-10-02] MEDS ORDERED: FLU VACC QS2021-22(6MOS UP)/PF 60 MCG/0.5 ML SYRINGE IM ONE (09:00)
[2021-10-02] MEDS ORDERED: Carvedilol 6.25 MG TAB PO SCH (09:00)
[2021-10-02] MEDS ORDERED: Prevnar 13-Val Conj/PF 0.5 ML SYRINGE IM ONE (09:00)
[2021-10-02] MEDS ORDERED: Communication Order-Pharmacy FS SCH (09:15)
[2021-10-02] MEDS ORDERED: Iopamidol 370 76% 100 ML VIAL ONE (10:58)
[2021-10-02] MEDS ORDERED: Nitroglycerin 100MG/250ML BOT 250 ML ONE (11:16)
[2021-10-02] MEDS ORDERED: Heparin 10,000 UNITS/ 10 ML VIAL ONE (11:16)
[2021-10-02] MEDS ORDERED: Verapamil 5 MG/2 ML VIAL ONE (11:16)
[2021-10-02] MEDS ORDERED: Lidocaine 1% (PF) 30 ML VIAL ONE (11:16)
[2021-10-02] MEDS ORDERED: Fentanyl 100 MCG/2 ML VIAL ONE (11:51)
[2021-10-02] MEDS ORDERED: Midazolam HCl 2 mg/2 ml Vial ONE (11:51)
[2021-10-02] MEDS: Losartan 25 MG TAB PO SCH (18:11)
[2021-10-02] MEDS: Atorvastatin Calcium 40 MG TAB PO SCH (20:31)
[2021-10-02] MEDS: Carvedilol 6.25 MG TAB PO SCH (20:31)
[2021-10-03] MEDS ORDERED: Ibuprofen 800 MG TAB PO PRN (03:36)
[2021-10-03 04:35] LABS: #Eosinphils 0.1 thou/uL (0.0-0.7); #Lymphocytes 2.7 thou/uL (1.20-3.40); #Monocytes 0.8 thou/uL (0.11-0.59); #Neutrophils 7.6 thou/uL (1.40-6.50); %Basophils 0.4 % (0.0-1.0); %Eosinophils 1.2 % (0.0-10.0); %Lymphocytes 23.8 % (21.0-51.0); %Monocytes 6.8 % (0.0-10.0); %Neutrophils 67.8 % (42.0-75.0); Hemoglobin 14.5 g/dL (12.0-16.0); Mean Corpuscular HGB CONC 32.1 g/dL (32.0-36.0); Mean Corpuscular Hemoglobin 30.8 pg (27.0-31.0); Mean Platelet Volume 7.8 fL (7.4-10.4); Platelet Count 182 thou/uL (130-400); RBC Distribution Width 12.8 % (11.5-14.5); Red Blood Cell (RBC) Count 4.69 mill/uL (4.20-5.40); White Blood Cell (WBC) Count 11.1 thou/uL (4.8-10.8)
[2021-10-03 05:00] LABS: Anion Gap 13 mmol/L (10-20); BUN (Urea Nitrogen) 18 mg/dL (7.0-18.7); Calc. Creatinine Clearance 0 mL/min (70-130); Carbon Dioxide 22 mmol/L (22-29); Cardiac Risk 3.6 (Less than 4.5); Chloride 104 mmol/L (98-107); Cholesterol 111 mg/dl (< 200 Desired); Glucose 98 mg/dL (70-105); HDL Cholesterol 31 mg/dL (>60 Neg Risk); LDL Cholesterol, Calculated 67 mg/dL; Potassium 4.1 mmol/L (3.5-5.1); Sodium 135 mmol/L (136-145); Triglycerides 66 mg/dL (Less than 150)
[2021-10-03] MEDS: Furosemide 20 MG TAB PO SCH (09:47)
[2021-10-03] MEDS: Aspirin Chewable 81 MG TAB PO SCH (09:47)
[2021-10-03] MEDS: Carvedilol 6.25 MG TAB PO SCH ×2 (09:48→20:20)
[2021-10-03] MEDS: Spironolactone 25 MG TAB PO SCH (09:48)
[2021-10-03] MEDS ORDERED: Iopamidol 370 76% 100 ML VIAL ONE (11:59)
[2021-10-03] MEDS: Losartan 25 MG TAB PO SCH (17:41)
[2021-10-03] MEDS: Atorvastatin Calcium 40 MG TAB PO SCH (20:19)
[2021-10-04 04:09] LABS: #Eosinphils 0.2 thou/uL (0.0-0.7); #Lymphocytes 3.3 thou/uL (1.20-3.40); #Monocytes 0.8 thou/uL (0.11-0.59); #Neutrophils 7.1 thou/uL (1.40-6.50); %Basophils 0.4 % (0.0-1.0); %Eosinophils 1.5 % (0.0-10.0); %Lymphocytes 28.7 % (21.0-51.0); %Monocytes 6.9 % (0.0-10.0); %Neutrophils 62.4 % (42.0-75.0); Hemoglobin 14.3 g/dL (12.0-16.0); Mean Corpuscular HGB CONC 32.7 g/dL (32.0-36.0); Mean Corpuscular Hemoglobin 31.3 pg (27.0-31.0); Mean Platelet Volume 7.5 fL (7.4-10.4); Platelet Count 186 thou/uL (130-400); RBC Distribution Width 12.6 % (11.5-14.5); Red Blood Cell (RBC) Count 4.56 mill/uL (4.20-5.40); White Blood Cell (WBC) Count 11.4 thou/uL (4.8-10.8)
[2021-10-04 04:32] LABS: Anion Gap 12 mmol/L (10-20); BUN (Urea Nitrogen) 15 mg/dL (7.0-18.7); Calc. Creatinine Clearance 0 mL/min (70-130); Calcium 8.8 mg/dL (7.8-10.44); Carbon Dioxide 24 mmol/L (22-29); Chloride 103 mmol/L (98-107); Glucose 130 mg/dL (70-105); Sodium 135 mmol/L (136-145)
[2021-10-04] MEDS: Aspirin Chewable 81 MG TAB PO SCH (08:23)
[2021-10-04] MEDS: Carvedilol 6.25 MG TAB PO SCH ×2 (08:23→22:03)
[2021-10-04] MEDS: Spironolactone 25 MG TAB PO SCH (08:23)
[2021-10-04] MEDS: Furosemide 20 MG TAB PO SCH (08:24)
[2021-10-04] MEDS: Losartan 25 MG TAB PO SCH (18:26)
[2021-10-04] MEDS: Atorvastatin Calcium 40 MG TAB PO SCH (22:03)
[2021-10-05 04:16] LABS: #Basophils 0.1 thou/uL (0.0-0.2); #Eosinphils 0.2 thou/uL (0.0-0.7); #Lymphocytes 3.8 thou/uL (1.20-3.40); #Monocytes 0.8 thou/uL (0.11-0.59); #Neutrophils 7.5 thou/uL (1.40-6.50); %Basophils 0.5 % (0.0-1.0); %Eosinophils 1.6 % (0.0-10.0); %Lymphocytes 30.8 % (21.0-51.0); %Monocytes 6.3 % (0.0-10.0); %Neutrophils 60.8 % (42.0-75.0); Hemoglobin 14.7 g/dL (12.0-16.0); Mean Corpuscular Hemoglobin 29.6 pg (27.0-31.0); Mean Corpuscular Volume 95.4 fL (78.0-98.0); Mean Platelet Volume 7.3 fL (7.4-10.4); Platelet Count 234 thou/uL (130-400); RBC Distribution Width 12.8 % (11.5-14.5); Red Blood Cell (RBC) Count 4.97 mill/uL (4.20-5.40); White Blood Cell (WBC) Count 12.4 thou/uL (4.8-10.8)
[2021-10-05 04:38] LABS: Anion Gap 15 mmol/L (10-20); BUN (Urea Nitrogen) 14 mg/dL (7.0-18.7); Calc. Creatinine Clearance 233 mL/min (70-130); Calcium 9.5 mg/dL (7.8-10.44); Carbon Dioxide 23 mmol/L (22-29); Chloride 102 mmol/L (98-107); Glucose 117 mg/dL (70-105); Sodium 136 mmol/L (136-145)
[2021-10-05] MEDS: Spironolactone 25 MG TAB PO SCH (08:40)
[2021-10-05] MEDS: Carvedilol 6.25 MG TAB PO SCH (08:40)
[2021-10-05] MEDS: Aspirin Chewable 81 MG TAB PO SCH (08:40)
[2021-10-05] MEDS: Furosemide 20 MG TAB PO SCH (08:40)
[2021-10-05 08:46] VITALS: BP 118/63; TEMP 98.3
== END 2021-10-05 13:06 | disposition home or self-care (01) | DRG 391 ==
LOC: ERS 21:18 → 2NO 10-02 00:40 → OBSVTOIN 10-02 16:38
PROVIDERS: ADMIT Student in an Organized Health Care Education/Training Program; ATTEND Family Medicine
PROC: 4A023N7 Measurement of Cardiac Sampling and Pressure, Left Heart, Percutaneous Approach (ICD-10-PCS; principal; 2021-10-02)
PROC: B2111ZZ Fluoroscopy of Multiple Coronary Arteries using Low Osmolar Contrast (ICD-10-PCS; 2021-10-02)
DX: K21.9 Gastro-esophageal reflux disease without esophagitis (principal); I21.4 Non-ST elevation (NSTEMI) myocardial infarction; Z68.44 Body mass index [BMI] 60.0-69.9, adult; I50.22 Chronic systolic (congestive) heart failure; I42.9 Cardiomyopathy, unspecified; I11.0 Hypertensive heart disease with heart failure; G47.33 Obstructive sleep apnea (adult) (pediatric); D72.829 Elevated white blood cell count, unspecified; I25.10 Atherosclerotic heart disease of native coronary artery without angina pectoris; I08.3 Combined rheumatic disorders of mitral, aortic and tricuspid valves; E03.8 Other specified hypothyroidism; E66.01 Morbid (severe) obesity due to excess calories; E78.5 Hyperlipidemia, unspecified; Z88.0 Allergy status to penicillin; Z91.040 Latex allergy status; Z79.82 Long term (current) use of aspirin; Z79.899 Other long term (current) drug therapy; Z88.8 Allergy status to other drugs, medicaments and biological substances
CPT/HCPCS: 36415; 71045; 71275; 80048; 80053; 80061; 82550; 83880; 84443; 84484; 85025; 93005; 93306; 93458; 94760; 96374; 96375; 96376; G0378; J1644; J2001; J2250; J2270; J2405; J3010; Q9967

== ENCOUNTER 2021-11-06 01:07 | Emergency (ER) | payer OTHER ==
[2021-11-06 02:06] LABS: #Eosinphils 0.1 thou/uL (0.0-0.7); #Lymphocytes 3.3 thou/uL (1.20-3.40); #Monocytes 0.8 thou/uL (0.11-0.59); #Neutrophils 5.9 thou/uL (1.40-6.50); %Basophils 0.3 % (0.0-1.0); %Eosinophils 1.4 % (0.0-10.0); %Lymphocytes 32.6 % (21.0-51.0); %Monocytes 8.1 % (0.0-10.0); %Neutrophils 57.5 % (42.0-75.0); Hemoglobin 13.7 g/dL (12.0-16.0); Mean Corpuscular Hemoglobin 31.7 pg (27.0-31.0); Mean Corpuscular Volume 96.1 fL (78.0-98.0); Mean Platelet Volume 7.1 fL (7.4-10.4); Platelet Count 241 thou/uL (130-400); RBC Distribution Width 13.3 % (11.5-14.5); Red Blood Cell (RBC) Count 4.32 mill/uL (4.20-5.40); White Blood Cell (WBC) Count 10.2 thou/uL (4.8-10.8)
[2021-11-06 02:29] LABS: ALT (SGPT) 16 U/L (8-55); AST (SGOT) 13 U/L (5-34); Albumin 3.6 g/dL (3.5-5.0); Alkaline Phosphatase 74 U/L (40-110); Anion Gap 13 mmol/L (10-20); BUN (Urea Nitrogen) 22 mg/dL (7.0-18.7); Bilirubin, Total 0.6 mg/dL (0.2-1.2); Calc. Creatinine Clearance 0 mL/min (70-130); Calcium 9.2 mg/dL (7.8-10.44); Carbon Dioxide 26 mmol/L (22-29); Chloride 103 mmol/L (98-107); Globulin 3.4 g/dL (2.4-3.5); Glucose 94 mg/dL (70-105); Sodium 138 mmol/L (136-145)
[2021-11-06] MEDS ORDERED: Mag-Al 1200 mg/1200 mg/30 ML UDCUP ONE (04:31)
[2021-11-06] MEDS ORDERED: Lidocaine Viscous Sol 2% 15 ml UD Cup ONE (04:31)
[2021-11-06] MEDS ORDERED: Ondansetron PF 4 MG/2 ML Vial ONE (04:57)
[2021-11-06] MEDS ORDERED: Morphine 4 MG/ML VIAL ONE (05:47)
== END 2021-11-06 07:02 | disposition home or self-care (01) ==
LOC: ERS 01:07
DX: R07.9 Chest pain, unspecified (principal); I11.0 Hypertensive heart disease with heart failure; I50.9 Heart failure, unspecified; E78.5 Hyperlipidemia, unspecified; Z79.82 Long term (current) use of aspirin; Z79.899 Other long term (current) drug therapy
CPT/HCPCS: 36415; 71045; 80053; 83880; 84484; 85025; 93005; 94760; 96374; 96375; J2270; J2405

== ENCOUNTER 2022-10-01 11:15 | Outpatient (CLI) | payer OTHER | END 2022-10-01 11:16 | disposition home or self-care (01) | LOC: BICRAD 11:15 | PROVIDERS: ATTEND Preventive Medicine Occupational Medicine | DX: Z02.71 Encounter for disability determination (principal); I50.9 Heart failure, unspecified | CPT/HCPCS: 71046 ==